=== PATIENT | male | born 1990 | race Two or more races ===

== ENCOUNTER 2019-05-25 16:01 | Inpatient (IN) ==
[~2019-05-25 16:01] MED LIST: ceFAZolin 1,000 MG in SYRINGE 1 EACH IV SCH
[2019-05-25] MEDS ORDERED: ONDANSETRON 4 MG/2 ML VIAL IV STA (16:25)
[2019-05-25] MEDS ORDERED: HYDROmorphone 2 MG/1 ML VIAL IV ONE (16:25)
[2019-05-25] MEDS ORDERED: DIPH/TET/ACEL PERT BOOSTER VACCINE 0.5 ML VIAL IM ONE (17:16)
[2019-05-25 18:11] LABS: Basophils # 0.1 10*3/uL (0.0-0.2); Basophils % 0.4 % (0.0-0.8); Eosinophils % 0.1 % (0.00-10.9); Hematocrit 40.7 VOL% (42.0-52.0); Hemoglobin 14.1 GM/DL (14.0-18.0); Immature Granulocytes % 0.6 %; Lymphocytes # 1.6 10*3/uL (1.4-4.0); Lymphocytes % 9.6 % (21.2-54.2); Mean Corpuscular HGB Conc 34.6 GM/DL (32-36); Mean Corpuscular Volume 88.3 FL (87-102); Mean Platelet Volume 9.7 FL (9.6-12.0); Monocytes % 4.8 % (1.7-12.7); Neutrophils % 84.5 % (38.7-73.9); Platelet Count 337 T/CUMM (130-400); Red Blood Count 4.61 MC/CUMM (3.8-5.5); Red Cell Distribution Width 12.5 % (9.3-17.3)
[2019-05-25 18:18] LABS: INR 0.9; PT Patient Result 10.1 SECS
[2019-05-25 18:32] LABS: Albumin 4.2 G/DL (3.4-5.0); Bilirubin,Total 0.4 MG/DL (0.2-1.0); Calcium 8.8 MG/DL (8.5-10.1); Osmolality,Calculated 281.4 MOS/KG (273-304); Total Protein 8.1 G/DL (6.4-8.3)
[2019-05-25] MEDS ORDERED: BACITRACIN OINT 0.9 GM PACK TOP ONE (18:44)
[2019-05-25] MEDS ORDERED: ceFAZolin 1,000 MG VIAL ONE (20:02)
[2019-05-25] MEDS ORDERED: ACETAMINOPHEN 325 MG TABLET PO PRN (21:43)
[2019-05-25] MEDS ORDERED: MORPHINE 4 MG/1 ML VIAL IV PRN ×2 (21:43)
[2019-05-25] MEDS ORDERED: MAGNESIUM HYDROXIDE SUSP 30 ML UDCUP PO PRN (21:43)
[2019-05-25] MEDS ORDERED: ONDANSETRON 4 MG/2 ML VIAL IV PRN ×2 (21:43→22:29)
[2019-05-25] MEDS ORDERED: KETOROLAC 15 MG/1 ML VIAL IV PRN (21:43)
[2019-05-25] MEDS ORDERED: diphenhydrAMINE CAP 25 MG CAPSULE PO PRN (21:43)
[2019-05-25] MEDS ORDERED: SUGAMMADEX 200 MG/2 ML VIAL IV ONE (21:56)
[2019-05-25] MEDS ORDERED: LACTATED RINGERS 1,000 ML IV SCH (22:00)
[2019-05-25] MEDS ORDERED: SEVOFLURANE 1 UNIT/15 MINUTE INH ONE (22:09)
[2019-05-25] MEDS ORDERED: fentaNYL 100 MCG/2 ML VIAL ONE (22:09)
[2019-05-25] MEDS ORDERED: PROPOFOL 200 MG/20 ML VIAL IV ONE (22:09)
[2019-05-25] MEDS ORDERED: ONDANSETRON 4 MG/2 ML VIAL ONE ×2 (22:10→22:23)
[2019-05-25] MEDS ORDERED: DEXAMETHASONE 4 MG/1 ML VIAL ONE (22:10)
[2019-05-25] MEDS ORDERED: GLYCOPYRROLATE 0.4 MG/2 ML VIAL ONE (22:10)
[2019-05-25] MEDS ORDERED: MIDAZOLAM 2 MG/2 ML VIAL ONE (22:10)
[2019-05-25] MEDS ORDERED: NEOSTIGMINE 10 MG/10 ML VIAL ONE (22:10)
[2019-05-25] MEDS ORDERED: ROCURONIUM 100 MG/10 ML VIAL IV ONE (22:10)
[2019-05-25] MEDS ORDERED: LACTATED RINGERS 1,000 ML IV ONE (22:10)
[2019-05-25] MEDS ORDERED: HYDROmorphone 2 MG/1 ML VIAL ONE (22:23)
[2019-05-25] MEDS: HYDROmorphone 2 MG/1 ML VIAL IV PRN ×2 (22:26→22:45)
[2019-05-26] MEDS: ceFAZolin 1,000 MG in SYRINGE 1 EACH IV SCH ×3 (02:03→17:35)
[2019-05-26 04:54] LABS: Basophils % 0.2 % (0.0-0.8); Hematocrit 40.5 VOL% (42.0-52.0); Hemoglobin 13.8 GM/DL (14.0-18.0); Immature Granulocytes % 0.6 %; Lymphocytes % 6.4 % (21.2-54.2); Mean Corpuscular HGB Conc 34.1 GM/DL (32-36); Mean Corpuscular Volume 89.6 FL (87-102); Mean Platelet Volume 10.1 FL (9.6-12.0); Monocytes % 1.1 % (1.7-12.7); Neutrophils % 91.7 % (38.7-73.9); Platelet Count 350 T/CUMM (130-400); Red Blood Count 4.52 MC/CUMM (3.8-5.5); Red Cell Distribution Width 12.4 % (9.3-17.3); White Blood Count 15.7 T/CUMM (4-12)
[2019-05-26 05:17] LABS: Band Neutrophils 1 % (0-10); Lymphocytes 9 % (20-55); Platelet Estimate Adequate; Segmented Neutrophils 89 % (50-85); Total Cells Counted 100
[2019-05-26 05:20] LABS: Calcium 9.1 MG/DL (8.5-10.1); Osmolality,Calculated 284.4 MOS/KG (273-304)
[2019-05-27] MEDS: ceFAZolin 1,000 MG in SYRINGE 1 EACH IV SCH ×3 (02:10→17:15)
[2019-05-27 16:49] VITALS: BP 134/71
== END 2019-05-27 18:20 | disposition home or self-care (01) | DRG 502 ==
LOC: N.ED 16:01 → N.EDINP 17:18 → N.3E 17:37
PROVIDERS: ADMIT Orthopaedic Surgery; ATTEND Orthopaedic Surgery